=== PATIENT | female | born 1945 | race Caucasian/White ===

== ENCOUNTER 2021-09-28 22:30 | Emergency (ER) | payer MEDICARE, BC | END 2021-09-29 00:45 | disposition home or self-care (01) | LOC: CSHERS 22:30 | DX: M54.2 Cervicalgia (principal); R51.9 Headache, unspecified; M25.561 Pain in right knee; M25.562 Pain in left knee; I10 Essential (primary) hypertension; E78.5 Hyperlipidemia, unspecified; K21.9 Gastro-esophageal reflux disease without esophagitis; Z79.899 Other long term (current) drug therapy | CPT/HCPCS: 70450; 72125 ==